=== PATIENT | female | born 1955 | race Caucasian/White ===

== ENCOUNTER 2019-06-16 15:49 | Outpatient (REF) | payer BC, SELFPAY ==
[2019-06-16 19:58] LABS: Calculated LDL 104 mg/dL; Cholesterol 197 mg/dL (50-200); HDL Cholesterol 73 mg/dL (40-60); Triglyceride 100 mg/dL (30-150)
== END 2019-06-16 16:09 ==
LOC: NCHCN 15:49
PROVIDERS: Visit Provider Nurse Practitioner Family
DX: Z13.220 Encounter for screening for lipoid disorders (principal)
CPT/HCPCS: 80061; 83721

== ENCOUNTER 2024-07-10 18:01 | Outpatient (REF) | payer OTHER, SELFPAY ==
[2024-07-10 19:42] LABS: HCT 41.8 % (36.0-46.0); HGB 13.8 g/dL (11.2-15.7); MCH 33.8 pg (27.0-33.0); MCV 103 fL (80-95); MPV 10.3 fL (8.0-11.0); Platelet Count 355 10^3/uL (130-400); RBC 4.08 10^6/uL (3.93-5.22); RDW 13.6 % (11.7-14.6); RDW-SD 51.6 fL; WBC 12.66 10^3/uL (4.4-10.8)
[2024-07-10 19:45] LABS: ESR 24 mm/hr (0-30)
[2024-07-10 20:00] LABS: ALT 39 U/L (14-59); AST 27 U/L (15-37); Albumin 3.2 g/dL (3.4-5.0); Alkaline Phosphatase 133 U/L (46-116); BUN 13 mg/dL (7-18); Bilirubin, Total 0.39 mg/dL (0.2-1.0); C-Reactive Protein 6.65 mg/dL (<or=0.5); CREATININE 0.8 mg/dL (0.55-1.02); Calcium 9.4 mg/dL (8.5-10.1); Chloride 106 mmol/L (98-107); Estimated GFR 79.22 (mL/min/1.73m2); Glucose 110 mg/dL (74-106); Potassium 3.5 mmol/L (3.5-5.1); Sodium 142 mmol/L (136-145); Total Protein 7.3 g/dL (6.4-8.2); Uric Acid 6.3 mg/dL (2.6-6.0)
[2024-07-11 19:36] LABS: Hepatitis B Surface Ag Negative (Negative)
[2024-07-12 09:37] LABS: Lyme Ab w Rflx to Lyme Confirm Negative (Negative)
== END 2024-07-10 18:02 | disposition home or self-care (01) ==
LOC: NCHCN 18:01
PROVIDERS: Visit Provider Internal Medicine
DX: M10.09 Idiopathic gout, multiple sites (principal)
CPT/HCPCS: 80053; 85027; 85652; 86706; 87340; 84550; 86140; 86618

== ENCOUNTER 2024-07-25 18:07 | Outpatient (REF) | payer OTHER, SELFPAY ==
[2024-07-25 19:26] LABS: Uric Acid 5.2 mg/dL (2.6-6.0)
== END 2024-07-25 18:08 | disposition home or self-care (01) ==
LOC: NCHCN 18:07
PROVIDERS: Visit Provider Physician Assistant
DX: M10.09 Idiopathic gout, multiple sites (principal)
CPT/HCPCS: 84550

== ENCOUNTER 2025-10-10 12:22 | Outpatient (REF) | payer OTHER, SELFPAY ==
[2025-10-10 18:21] LABS: HCT 43.3 % (36.0-46.0); HGB 14.4 g/dL (11.2-15.7); MCH 33.0 pg (27.0-33.0); MCHC 33.3 % (32.0-36.0); MCV 99 fL (80-95); MPV 10.7 fL (8.0-11.0); Platelet Count 307 10^3/uL (130-400); RBC 4.36 10^6/uL (3.93-5.22); RDW 12.7 % (11.7-14.6); RDW-SD 47.0 fL; WBC 13.02 10^3/uL (4.4-10.8)
[2025-10-10 18:35] LABS: Hemoglobin A1C 5.4 % (<5.7)
[2025-10-10 18:40] LABS: TSH (W/Ref FT4) 1.10 uIU/mL (0.55-4.78)
[2025-10-10 18:42] LABS: ALT 22 U/L (10-49); AST 21 U/L (<34); Albumin 4.3 g/dL (3.2-5.0); Alkaline Phosphatase 98 U/L (46-116); Anion Gap 9.4 mmol/L (3-11); BUN 15 mg/dL (9-23); Bilirubin, Total 0.50 mg/dL (0.2-1.2); CO2 25.6 mmol/L (20.0-31.0); Calcium 9.1 mg/dL (8.3-10.6); Chloride 108 mmol/L (98-107); Cholesterol 181 mg/dL (<200); Glucose 107 mg/dL (74-106); HDL Cholesterol 58 mg/dL (>40); Potassium 4.1 mmol/L (3.5-5.1); Sodium 143 mmol/L (136-145); Total Protein 7.0 g/dL (5.7-8.2)
== END 2025-10-10 12:23 | disposition home or self-care (01) ==
LOC: NCHCN 12:22
PROVIDERS: Visit Provider Nurse Practitioner Family
DX: Z13.6 Encounter for screening for cardiovascular disorders (principal); Z13.1 Encounter for screening for diabetes mellitus; R42 Dizziness and giddiness
CPT/HCPCS: 80053; 80061; 85027; 83036; 84443